=== PATIENT | male | born 1975 | race African-American/Black ===

== ENCOUNTER 2020-09-19 06:49 | Emergency (ER) | payer MEDICAID ==
[~2020-09-19] VITALS: Ht 182.9 cm; Wt 83.6 kg
[~2020-09-19 06:49] MED LIST: DILANTIN 100MG100 MG PO
[2020-09-19 06:54] VITALS: TEMP 98.1
[2020-09-19] MEDS ORDERED: DILANTIN KAPSEA30 MG PO (06:58)
[2020-09-19 07:07] LABS: BASO % 0.1 % (0.0-2.0); EOS # 0.2 (0.0-0.7); EOS % 2.3 % (0-4.0); GRAN # 4.2 (1.4-6.5); GRAN % 56.8 % (42.2-75.2); HEMATOCRIT 44.5 % (42.0-52.0); HEMOGLOBIN 14.9 g/dl (13.5-18.0); LYMPH # 2.3 (1.2-3.4); LYMPH % 31.4 % (20.0-51.0); MEAN CELL VOLUME 96 fl (80.0-100.0); MEAN CORPUSCULAR HEMOGLOBIN 32 pg (27.0-31.0); MEAN CORPUSCULAR HGB CONC 34 g/dl (33.0-37.0); MEAN PLATELET VOLUME 8.6 fl (7.4-10.4); MONO # 0.7 (0.1-0.6); MONO % 9.1 % (1.7-9.3); PLATELET COUNT 216 K/mm3 (130-400); RED BLOOD COUNT 4.62 M/mm3 (4.20-5.60); REDCELL DISTRIBUTION WIDTH-CV 12.8 % (11.5-14.5)
[2020-09-19 07:20] LABS: ALBUMIN 4.5 gm/dL (3.5-5.0); ALKALINE PHOSPHATASE 125 U/L (50-136); ANION GAP 17 mmol/L (7-16); AST,SGOT 28 U/L (15-37); BILIRUBIN,TOTAL 0.1 mg/dL (0.0-1.0); BLOOD UREA NITROGEN 13 mg/dL (9-20); C-REACTIVE PROTEIN 0.8 mg/dL (0.0-0.9); CALCIUM 9.3 mg/dL (8.4-10.2); CARBON DIOXIDE 16 mmol/L (22-30); CHLORIDE 107 mmol/L (98-107); CREATININE, serum 0.99 (0.66-1.25); GLUCOSE 105 mg/dL (74-106); POTASSIUM 4.1 mmol/L (3.4-5.0); SODIUM 140 mmol/L (137-145); TOTAL PROTEIN 7.5 gm/dL (6.4-8.2)
[2020-09-19 07:25] LABS: ALANINE AMINOTRANSFERASE 24 U/L (4-49)
[2020-09-19 07:45] LABS: PHENYTOIN (DILANTIN) < 3.0 ug/mL (10.0-20.0)
[2020-09-19 07:56] LABS: PROLACTIN 32.1 ng/mL (3.7-17.9)
[2020-09-19] MEDS ORDERED: DILANTIN 100MG100 MG PO (08:20)
[2020-09-19 08:35] VITALS: BP 99/67; PULSE 90
== END 2020-09-19 08:35 | disposition home or self-care (01) ==
LOC: COL.ER 06:49 → EDBD 06:54 → COL.ER 06:54
PROVIDERS: Family Medicine
DX: G40.909 Epilepsy, unspecified, not intractable, without status epilepticus (principal); F17.200 Nicotine dependence, unspecified, uncomplicated; Z79.899 Other long term (current) drug therapy

== ENCOUNTER 2021-01-30 00:39 | Emergency (ER) | payer MEDICAID ==
[~2021-01-30] VITALS: Ht 182.9 cm; Wt 81.8 kg
[~2021-01-30 00:39] MED LIST changes: +DILANTIN KAPSEA30 MG PO
[2021-01-30 00:44] VITALS: TEMP 98.1
[2021-01-30 02:52] LABS: BASO % 0.1 % (0.0-2.0); EOS # 0.1 K/mm3 (0.0-0.7); EOS % 1.3 % (0.0-4.0); GRAN % 78.8 % (42.2-75.2); HEMATOCRIT 37.3 % (42.0-52.0); HEMOGLOBIN 12.6 g/dl (13.5-18.0); LYMPH # 1.1 K/mm3 (1.2-3.4); LYMPH % 13.8 % (20.0-51.0); MEAN CELL VOLUME 97 fl (80.0-100.0); MEAN CORPUSCULAR HEMOGLOBIN 33 pg (27-31); MEAN CORPUSCULAR HGB CONC 34 g/dl (33.0-37.0); MEAN PLATELET VOLUME 8.8 fl (7.4-10.4); MONO # 0.5 K/mm3 (0.1-0.6); MONO % 5.9 % (1.7-9.3); PLATELET COUNT 199 K/mm3 (130-400); RED BLOOD COUNT 3.86 M/mm3 (4.20-5.60); REDCELL DISTRIBUTION WIDTH-CV 12.7 % (11.5-14.5)
[2021-01-30 03:17] LABS: ALBUMIN 3.2 gm/dL (3.5-5.0); BILIRUBIN,TOTAL 0.3 mg/dL (0.2-1.2); CALCIUM 7.8 mg/dL (8.4-10.2); CREATININE, serum 1.05 mg/dL (0.72-1.25); POTASSIUM 4.1 mmol/L (3.5-4.5); TOTAL PROTEIN 5.8 gm/dL (6.2-8.1)
[2021-01-30 11:35] LABS: TRICYCLIC ANTIDEPRESS URINE NEGATIVE
[2021-01-30 12:25] VITALS: BP 127/78; PULSE 61
== END 2021-01-30 12:25 | disposition home or self-care (01) ==
LOC: COL.ER 00:39
PROVIDERS: Physician Assistant
DX: G40.309 Generalized idiopathic epilepsy and epileptic syndromes, not intractable, without status epilepticus (principal); F15.10 Other stimulant abuse, uncomplicated; F17.210 Nicotine dependence, cigarettes, uncomplicated
CPT/HCPCS: J1610; J1953; J2060; J2310; J7030

== ENCOUNTER 2021-03-04 10:20 | Emergency (ER) | payer MEDICAID ==
[~2021-03-04] VITALS: Ht 182.9 cm; Wt 95.5 kg
[2021-03-04 10:25] VITALS: TEMP 98.7
[2021-03-04 11:08] LABS: HEMATOCRIT 44.2 % (42.0-52.0); HEMOGLOBIN 15.1 g/dl (13.5-18.0); MEAN CELL VOLUME 94 fl (80.0-100.0); MEAN CORPUSCULAR HEMOGLOBIN 32 pg (27-31); MEAN CORPUSCULAR HGB CONC 34 g/dl (33.0-37.0); MEAN PLATELET VOLUME 8.8 fl (7.4-10.4); PLATELET COUNT 192 K/mm3 (130-400); REDCELL DISTRIBUTION WIDTH-CV 13.2 % (11.5-14.5)
[2021-03-04 11:28] LABS: ALBUMIN 4.3 gm/dL (3.5-5.0); BILIRUBIN,TOTAL 0.3 mg/dL (0.2-1.2); CALCIUM 9.4 mg/dL (8.4-10.2); CREATININE, serum 1.19 mg/dL (0.72-1.25); POTASSIUM 4.4 mmol/L (3.5-4.5); TOTAL PROTEIN 7.8 gm/dL (6.2-8.1)
[2021-03-04 11:39] LABS: BAND 3 % (0-10); EOSINOPHIL 2 % (0-4); LYMPHOCYTE 11 % (20.0-51.0); NEUTROPHILS 67 % (42.0-75.2); PLATELET ESTIMATE NORMAL (NORMAL)
[2021-03-04] MEDS ORDERED: DILANTIN 100MG100 MG PO (12:17)
[2021-03-04 13:04] VITALS: BP 103/64; PULSE 103
== END 2021-03-04 13:04 | disposition home or self-care (01) ==
LOC: COL.ER 10:20
PROVIDERS: Nurse Practitioner
DX: G40.909 Epilepsy, unspecified, not intractable, without status epilepticus (principal); F17.210 Nicotine dependence, cigarettes, uncomplicated
CPT/HCPCS: J1953; J7030